=== PATIENT | male | born 1930 | race Caucasian/White ===

== ENCOUNTER 2016-11-22 09:23 | Emergency (ER) | payer MEDICARE ==
[~2016-11-22] VITALS: Ht 188 cm; Wt 78.0 kg
[2016-11-22 09:27] VITALS: BP 135/88; PULSE 116; RESP 18; TEMP 98.4; O2SAT 99
[2016-11-22] MEDS ORDERED: predniSONE 20 MG TAB PO ONE (09:45)
[2016-11-22] MEDS ORDERED: CARV12.52 PO (09:51)
[2016-11-22] MEDS ORDERED: LEVO50TA4 PO (09:51)
[2016-11-22] MEDS ORDERED: WARF-20 PO (09:51)
[2016-11-22] MEDS ORDERED: LISI-515 PO (09:51)
[2016-11-22] MEDS ORDERED: MEDR4PAK PO (09:51)
--- NOTE | 2016-11-22 09:59 | PD ---
HPI Chief Complaint: Skin Problem Time Seen by Provider: 09:38 Travel History International Travel<30 days: No Contact w/Intl Traveler<30days: No Traveled to known affect area: No History of Present Illness HPI Patient is an 86 year old male who presents to ER with c/o of rash for the past 10 days. Patient reports that he recently moved into a new apartment and reports that for the past 10 days, he has had an itchy rash to his body. Reports that he saw his primary care doctor who put him on a medrol dose pack and cortisone cream - reports that this is not helping him. Patient reports no fever/chills. Denies any new medications/lotions and creams. Denies any new soaps/detergents and does use Dove soap as well as Tide Gentle detergent to wash his clothes. Patient reports that he can't stop itching his body and "it' s driving me crazy." No fever/chills. No cp/sob. No other c/o. PFSH Past Medical History Hx Anticoagulant Therapy: Yes Cardiovascular Problems: Yes (HTN) Social History Tobacco Use: No Allergies-Medications (Allergen,Severity, Reaction): Coded Allergies: No Known Allergies (Unverified , 11/22/16) Reported Meds & Prescriptions Reported Meds & Active Scripts Active Benadryl Allergy (Diphenhydramine HCl) 25 Mg Tab 50 Mg PO Q6H PRN 5 Days Prednisone 20 Mg Tab 20 Mg PO BID 5 Days Doxycycline Hyclate 100 Mg Cap 100 Mg PO BID 10 Days Reported Medrol Dosepak (Methylprednisolone) 4 Mg Dspk 4 Mg PO DIRECTED Per Pharmacist direction Warfarin 4 Mg Tab 4 Mg PO DAILY Levothyroxine (Levothyroxine Sodium) 50 Mcg Tab 50 Mcg PO DAILY Lisinopril 20 Mg Tab 20 Mg PO DAILY Carvedilol 12.5 Mg Tab 12.5 Mg PO BID Review of Systems General / Constitutional: No: Fever Eyes: No: Visual changes HENT: No: Headaches Cardiovascular: No: Chest Pain or Discomfort Respiratory: No: Shortness of Breath Gastrointestinal: No: Abdominal Pain Genitourinary: No: Dysuria Musculoskeletal: No: Pain Skin: Positive Rash, Positive Itching, Positive Dryness Neurologic: No: Weakness Psychiatric: No: Depression Endocrine: No: Polydipsia Hematologic/Lymphatic: No: Easy Bruising Physical Exam Narrative GENERAL: Well-nourished, well-developed patient. SKIN: Skin dry and red irritated to thorax/back and upper extremities with dry scaling/peeling skin, no petichiae or purpura, no vesicular lesions, no open lesion or drainage HEAD: Normocephalic. EYES: No scleral icterus. No injection or drainage. NECK: Supple, trachea midline. No JVD or lymphadenopathy. CARDIOVASCULAR: Regular rate and rhythm without murmurs, gallops, or rubs. RESPIRATORY: Breath sounds equal bilaterally. No accessory muscle use. GASTROINTESTINAL: Abdomen soft, non-tender, nondistended. MUSCULOSKELETAL: No cyanosis, or edema. BACK: Nontender without obvious deformity. No CVA tenderness. Data Data Last Documented VS Vital Signs Date Time Temp Pulse Resp B/P Pulse Ox O2 Delivery O2 Flow Rate FiO2 11/22/16 09:27 98.4 116 18 135/88 99 Orders Prednisone (Deltasone) (11/22/16 09:45) Doxycycline (Vibramycin) (11/22/16 10:00) Diphenhydramine (Benadryl) (11/22/16 10:00) [facility] Medical Decision Making Medical Screen Exam Complete: Yes Emergency Medical Condition: Yes Interpretation(s) Vital Signs Date Time Temp Pulse Resp B/P Pulse Ox O2 Delivery O2 Flow Rate FiO2 11/22/16 09:27 98.4 116 18 135/88 99 Differential Diagnosis cellulitis, dermatitis, allergic reaction Narrative Course Patient is an 86-year-old male who presents to emergency room with complaints of dermatitis. Reports that he has had itchy skin for the past 10 days, he was on a short course of Medrol Dosepak, reports that it did not help the symptoms. Patient reports that he cannot stop itching and reports increased pruritis. Patient with no fevers or chills. Patient with no nausea or vomiting. Plan to treat with antibiotics as patient most likely has underlying infection from scratching. Skin appears red/irritated, no blisters, no open skin, no petechia/purpura. Will have patient follow with his primary care doctor as well as dermatology and return to emergency room as needed. Signs and symptoms of when to return to ER was reviewed with patient in detail. 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
[2016-11-22] MEDS ORDERED: DOXYCYCLINE HYCLATE 100 MG CAP PO ONE (10:00)
[2016-11-22] MEDS ORDERED: diphenhydrAMINE HCL 25 MG CAP PO ONE (10:00)
[2016-11-22] MEDS ORDERED: DOXY100C PO (10:12)
[2016-11-22] MEDS ORDERED: BENA25TA3 PO (10:12)
[2016-11-22] MEDS ORDERED: PRED20 PO (10:12)
== END 2016-11-22 10:23 | disposition home or self-care (01) ==
LOC: PHED 09:23
DX: L30.9 Dermatitis, unspecified (principal); L29.9 Pruritus, unspecified; I10 Essential (primary) hypertension; Z79.01 Long term (current) use of anticoagulants; Z86.79 Personal history of other diseases of the circulatory system
CPT/HCPCS: 99282; J7512

== ENCOUNTER 2016-11-30 10:16 | Emergency (ER) | payer MEDICARE ==
[~2016-11-30] VITALS: Ht 188 cm; Wt 78.5 kg
[~2016-11-30 10:16] MED LIST: BENA25TA3 PO; CARV12.52 PO; DOXY100C PO; LEVO50TA4 PO; LISI-515 PO; MEDR4PAK PO; PRED20 PO; WARF-20 PO
[2016-11-30 10:20] VITALS: BP 135/82; PULSE 102; RESP 16; TEMP 98.6; O2SAT 100
--- NOTE | 2016-11-30 10:43 | PD ---
HPI Chief Complaint: Allergic/Adverse Reaction Time Seen by Provider: 10:28 Travel History International Travel<30 days: No Contact w/Intl Traveler<30days: No Traveled to known affect area: No History of Present Illness HPI Patient 86-year-old male with history of hives presents emergency Department with a rash over his chest and arms over the past month. Patient states his been waxing and waning. He states that about a month ago he was given a Medrol Dosepak by his primary care physician. He was here last week he was given a short course of low-dose prednisone. He states that he has an appointment with the child monitor but not to the beginning of next month. Patient also relates a history of recently being evicted from his house and now lives in apartment states she's been under a lot of stress and thinks that this started his hives. He denies any shortness of breath denies any difficulty swallowing denies any chest pain. Patient is adamant from initial history that he wants to be seen for his rash and nothing else. Patient states that the rash is been fairly itchy but is responding to the antihistamine cream is been putting on at home. PFSH Past Medical History Hx Anticoagulant Therapy: No Atrial Fibrillation: Yes Cardiovascular Problems: No Chemotherapy: No Cerebrovascular Accident: No Diabetes: No Diminished Hearing: No Hypertension: Yes Respiratory: No Tetanus Vaccination: Unknown Influenza Vaccination: No Past Surgical History Hysterectomy: No Tonsillectomy: Yes Social History Alcohol Use: No Tobacco Use: No Substance Use: No Allergies-Medications (Allergen,Severity, Reaction): Coded Allergies: No Known Allergies (Unverified , 11/30/16) Reported Meds & Prescriptions Reported Meds & Active Scripts Active Prednisone 20 Mg Tab 60 Mg PO DAILY 5 Days Prednisone 20 Mg Tab 20 Mg PO BID 5 Days Reported Warfarin 4 Mg Tab 4 Mg PO DAILY Levothyroxine (Levothyroxine Sodium) 50 Mcg Tab 50 Mcg PO DAILY Lisinopril 20 Mg Tab 20 Mg PO DAILY Carvedilol 12.5 Mg Tab 24 Mg PO BID Review of Systems Except as stated in HPI: all other systems reviewed are Neg Physical Exam Narrative GENERAL: Well-developed well-nourished, anxious but in no obvious distress. SKIN: There are hives on the patient's chest and back which are confluent over bilateral upper extremities from the shoulder down. She appears to be sparing the volar aspect. HEAD: Atraumatic. Normocephalic. EYES: Pupils equal and round. No scleral icterus. No injection or drainage. ENT: No nasal bleeding or discharge. Mucous membranes pink and moist. NECK: Trachea midline. No JVD. CARDIOVASCULAR: Irregularly irregular with tachycardia. No murmur appreciated. 2+ bilateral pulses in all 4 extremities RESPIRATORY: No accessory muscle use. Clear to auscultation. Breath sounds equal bilaterally. GASTROINTESTINAL: Abdomen soft, non-tender, nondistended. Hepatic and splenic margins not palpable. MUSCULOSKELETAL: No obvious deformities. No clubbing. No cyanosis. No edema. NEUROLOGICAL: Awake and alert. No obvious cranial nerve deficits. Motor grossly within normal limits. Normal speech. PSYCHIATRIC: Appropriate mood and affect; insight and judgment normal. Data Data Last Documented VS Vital Signs Date Time Temp Pulse Resp B/P Pulse Ox O2 Delivery O2 Flow Rate FiO2 11/30/16 11:06 109 18 98 11/30/16 10:40 Room Air 11/30/16 10:20 98.6 135/82 Orders Prednisone (Deltasone) (12/01/16 09:00) [facility] Medical Decision Making Medical Screen Exam Complete: Yes Emergency Medical Condition: Yes Differential Diagnosis Hives, dermatitis, atrial fibrillation. Narrative Course Patient 86-year-old male presents emergency department for evaluation of rash. He was noted be tachycardic on triage and is in nature fibrillation on the contact worker. He is adamant that he does not want to be worked up for anything else. He states he was able to walk" a mild" from the parking lot to get here without any shortness of breath. He states that he would rather follow up with his primary care physician for the atrial fibrillation. He denies any chest pain or shortness of breath this time. The subject of his rash patient didn't indeed have a prescription for prednisone 20 mg tablets one by mouth daily #5 which was prescribed to him on November 22. He states that this did not help. This was a small dose. Discussed with him the risk of adrenal suppression but he states that he really would like to try a higher dose. I think this is reasonable this time. He will be given a prescription of prednisone. After which he needs to follow up with a child monitor. I have recommended that he have a workup for his atrial fibrillation with some mild tachycardia today but he would rather go home. Discussed with him the risks of stroke and and he verbalized the risks and still wants to go home. Discussed he is welcome to return to the emergency department anytime should he feel the need is necessary. Diagnosis Primary Impression: Hives Additional Instructions: Highly recommend that you follow-up with a child monitor after this visit H earliest convenience. Med/Other Pt SpecificInfo: Prescription(s) given Scripts Prednisone 20 Mg Tab60 Mg PO DAILY 5 Days Ref 0 Prov:Elton Welch MD 11/30/16 Disposition: 01 DISCHARGE HOME Condition: Stable Elton Welch MD November 30, 2016 10:43
[2016-11-30] MEDS ORDERED: PRED20 PO (10:44)
[2016-12-01] MEDS ORDERED: predniSONE 20 MG TAB PO SCH (09:00)
== END 2016-11-30 11:06 | disposition home or self-care (01) ==
LOC: PHED 10:16
DX: L50.9 Urticaria, unspecified (principal); I48.91 Unspecified atrial fibrillation; I10 Essential (primary) hypertension
CPT/HCPCS: 99282

== ENCOUNTER 2017-05-09 08:14 | Emergency (ER) | payer MEDICARE ==
[~2017-05-09] VITALS: Ht 188 cm; Wt 81.0 kg
[~2017-05-09 08:14] MED LIST changes: -BENA25TA3 PO; -DOXY100C PO; -MEDR4PAK PO
[2017-05-09 08:22] VITALS: BP 143/90; PULSE 106; RESP 16; TEMP 97.6; O2SAT 99
--- NOTE | 2017-05-09 09:19 | PD ---
HPI Chief Complaint: Skin Problem Time Seen by Provider: 09:08 Travel History International Travel<30 days: No Contact w/Intl Traveler<30days: No Traveled to known affect area: No History of Present Illness HPI This is an 87-year-old male who presents to the emergency department with 4 days of a rash on his chest, constant, moderate severity, somewhat itchy with some oozing of clear fluid. He denies any fevers or chills. He denies using any new soaps, detergents or medications. He is prone to allergic reactions and rashes. He denies any trouble breathing. PFSH Past Medical History Hx Anticoagulant Therapy: No Atrial Fibrillation: Yes Cardiovascular Problems: No Chemotherapy: No Cerebrovascular Accident: No Diabetes: No Diminished Hearing: No Hypertension: Yes Respiratory: No Past Surgical History Hysterectomy: No Tonsillectomy: Yes Social History Alcohol Use: No Tobacco Use: No Substance Use: No Allergies-Medications (Allergen,Severity, Reaction): Coded Allergies: No Known Allergies (Unverified , 05/09/17) Reported Meds & Prescriptions Reported Meds & Active Scripts Active Prednisone 20 Mg Tab 60 Mg PO DAILY 5 Days Prednisone 20 Mg Tab 20 Mg PO BID 5 Days Reported Warfarin 4 Mg Tab 4 Mg PO DAILY Levothyroxine (Levothyroxine Sodium) 50 Mcg Tab 50 Mcg PO DAILY Lisinopril 20 Mg Tab 20 Mg PO DAILY Carvedilol 12.5 Mg Tab 24 Mg PO BID Review of Systems Except as stated in HPI: all other systems reviewed are Neg Physical Exam Narrative GENERAL:Well appearing, no acute distress SKIN: Erythematous patchy rash over the anterior chest wall with some honey crusting of the skin along the edges HEAD: Atraumatic. Normocephalic. EYES: Pupils equal and round. No injection or drainage. ENT: Moist mucous membranes NECK: Trachea midline. CARDIOVASCULAR: Regular rate and rhythm. No murmur appreciated. RESPIRATORY: Clear to auscultation. Breath sounds equal bilaterally. GASTROINTESTINAL: Abdomen soft, non-tender, nondistended. MUSCULOSKELETAL: No obvious deformities. NEUROLOGICAL: Awake and alert. No obvious cranial nerve deficits. Moving all extremities. PSYCHIATRIC: Appropriate mood and affect; insight and judgment normal. Data Data Last Documented VS Vital Signs Date Time Temp Pulse Resp B/P (MAP) Pulse Ox O2 Delivery O2 Flow Rate FiO2 05/09/17 08:22 97.6 106 16 143/90 (107) 99 [facility] Medical Decision Making Medical Screen Exam Complete: Yes Emergency Medical Condition: Yes Differential Diagnosis Contact dermatitis, urticaria, irritant dermatitis, impetigo Narrative Course This is an 87-year-old male who presents the emergency department with rash over his chest. He otherwise appears well and has no other symptoms of allergic reaction. I think he would benefit from prednisone. It appears to be a contact dermatitis although there are areas where I think the patient has scratched which appear to have some superinfection which may be impetigo. Patient will also be prescribed Bactroban ointment should follow-up with his primary care physician. Diagnosis Primary Impression: Dermatitis Additional Impression: Impetigo Patient Instructions: General Instructions Additional Instructions: If you develop fever, increasing redness, warmth, or spreading of your infection , or severe pain return to the emergency department immediately as you may require antibiotics through your IV. Follow-up with your primary care physician if you're not better in 2-3 days. Med/Other Pt SpecificInfo: Prescription(s) given Scripts Mupirocin Topical (Bactroban Topical) 22 Gm Cream 1 APPLIC TOPICAL TID for Mgmt Bacterial Infection, #1 TUBE 0 Refills Prov: Jazmín Royal MD 05/09/17 Prednisone (Prednisone) 20 Mg Tab 40 MG PO DAILY for 5 Days, #10 TAB 0 Refills Prov: Jazmín Royal MD 05/09/17 Disposition: 01 DISCHARGE HOME Condition: Stable Jazmín Royal MD May 09, 2017 09:19
[2017-05-09] MEDS ORDERED: PRED20 PO (09:20)
[2017-05-09] MEDS ORDERED: MUPI2%T TOPICAL (09:20)
== END 2017-05-09 09:29 | disposition home or self-care (01) ==
LOC: PHED 08:14
DX: L25.9 Unspecified contact dermatitis, unspecified cause (principal); L01.00 Impetigo, unspecified; I48.91 Unspecified atrial fibrillation; I10 Essential (primary) hypertension
CPT/HCPCS: 99284